=== PATIENT | male | born 1995 | race Caucasian/White ===

== ENCOUNTER 2022-06-06 23:30 | Emergency (ER) | payer BC ==
[~2022-06-06] VITALS: Ht 170.2 cm; Wt 62.6 kg
[2022-06-06 23:48] VITALS: BP 116/66
--- NOTE | 2022-06-06 23:58 | NUR ---
PT AMBULATED TO ED 4, PT PLACED IN GOWN AND MONITOR, REPORT GIVEN TO MARYCHUY LUGO.
[2022-06-07] MEDS ORDERED: METOCLOPRAMIDE 10 MG/2 ML INJ VIAL IVP ONE (01:00)
[2022-06-07] MEDS ORDERED: KETOROLAC 30 MG/ML VIAL IVP ONE (01:00)
[2022-06-07] MEDS ORDERED: NACL 0.9% 1,000 ML IV ONE (01:00)
--- NOTE | 2022-06-07 01:00 | NUR ---
SPOKE WITH PATIENT AT BEDSIDE; HAS COMPLAINTS OF NAUSEA, VOMITING, DIARRHEA. PATIENT REPORTS NOT BEING ABLE TO HOLD DOWN ANY LIQUIDS OR FOOD.
[2022-06-07 01:05] LABS: BASOPHILS % (AUTO) 0.3 % (0.0-2.0); EOSINOPHILS % (AUTO) 0.1 % (0.0-4.0); HEMATOCRIT 45.6 % (36-52); HEMOGLOBIN 16.1 g/dL (12.0-18.0); LYMPHOCYTES # (AUTO) 0.2 K/uL (2.0-11.5); LYMPHOCYTES % (AUTO) 2.3 % (20.5-51.1); MEAN CORPUSCULAR HEMOGLOBIN 30 pg (27-31); MEAN CORPUSCULAR HGB CONC 35 g/dL (33-37); MEAN CORPUSCULAR VOLUME 84.3 fL (80-94); MONOCYTES # (AUTO) 0.8 K/uL (0.8-1.0); MONOCYTES % (AUTO) 7.9 % (1.7-9.3); NEUTROPHILS # (AUTO) 9.2 K/uL (1.8-7.7); NEUTROPHILS % (AUTO) 89.4 % (42.2-75.2); PLATELET COUNT (AUTO) 191 K/uL (140-450); RED BLOOD CELL COUNT(AUTO) 5.42 MIL/uL (4.20-6.10); RED CELL DISTRIBUTION WIDTH 12.4 % (11.6-13.7); WHITE BLOOD COUNT (AUTO) 10.3 K/uL (4.8-10.8)
[2022-06-07 01:47] LABS: ALBUMIN 4.3 g/dL (3.4-5.0); ANION GAP 17.3 (8-16); CARBON DIOXIDE 24.9 mmol/L (21-32); CREATININE 1.2 mg/dL (0.6-1.3); POTASSIUM 4.2 mmol/L (3.5-5.1); TOTAL BILIRUBIN 1.4 mg/dL (0.0-1.0)
[2022-06-07 02:23] VITALS: BP 116/66
--- NOTE | 2022-06-07 02:23 | NUR ---
Patient discharged with v/s stable. Written and verbal after care instructions given and explained. Patient verbalized understanding. Ambulatory with steady gait. All questions addressed prior to discharge. Advised to follow up with PMD. DX: *VIRAL GASTROENTERITISE, ENTERITIS
== END 2022-06-07 02:23 | disposition home or self-care (01) ==
LOC: MED 23:30
DX: K52.9 Noninfective gastroenteritis and colitis, unspecified (principal); R11.10 Vomiting, unspecified; R19.7 Diarrhea, unspecified
CPT/HCPCS: 36415; 80053; 85025; 96361; 96374; 96375; 99284; J1885; J2765; J7030